=== PATIENT | female | born 1930 | race Asian ===

== ENCOUNTER 2017-10-01 09:23 | Inpatient (IN) | payer OTHER ==
[2017-10-01] MEDS: SOD CHLORIDE 0.9% 1,000 ML IV ×3 (10:51→21:52)
[2017-10-01 10:58] LABS: HEMATOCRIT 36.9 % (37.0-47.0); HEMOGLOBIN 12.4 g/dl (12.0-16.0); MEAN CORPUSCULAR HEMOGLOBIN 32.6 pg (29.0-33.0); MEAN CORPUSCULAR HGB CONC 33.6 g/dl (32.0-37.0); MEAN CORPUSCULAR VOLUME 97.1 fl (82.0-101.0); MEAN PLATELET VOLUME 11.5 fl (7.4-10.4); PLATELET COUNT 145 10^3/UL (140-415); RED CELL DISTRIBUTION WIDTH 12.5 % (11.5-14.5)
[2017-10-01 11:12] LABS: ADD MAN DIFF? YES; POSITIVE DIFF @See below
[2017-10-01 11:19] LABS: BAND NEUTROPHILS #M 3.6 10^3/ul (0.0-0.6); BAND NEUTROPHILS % (M) 33 % (0-4); BASOPHIL #M 0.1 10^3/ul (0.0-0.0); BASOPHILS % (M) 1 % (0-2); BURR CELLS 1+ (0-0); LYMPHOCYTES #M 1.5 10^3/ul (0.8-2.9); LYMPHOCYTES % (M) 14 % (15-51); MONOCYTE #M 0.4 10^3/ul (0.3-0.9); MONOCYTES % (M) 4 % (0-11); PLATELET ESTIMATE DECREASED; POIKILOCYTOSIS 1+ (0-0); SEG NEUT #M 5.7 10^3/ul (1.7-7.5); SEGMENTED NEUTROPHILS (M) % 48 % (39-77)
[2017-10-01 12:23] LABS: ADD UMIC NO; UR ASCORBIC ACID NEGATIVE (NEGATIVE); UR BILIRUBIN (Dip) NEGATIVE (NEGATIVE); UR BLOOD (Dip) NEGATIVE (NEGATIVE); UR CLARITY CLEAR (CLEAR); UR COLOR YELLOW (YELLOW); UR GLUCOSE (Dip) 3+ mg/dL (NEGATIVE); UR KETONES (Dip) TRACE mg/dL (NEGATIVE); UR LEUKOCYTE ESTERASE (Dip) NEGATIVE Leu/ul (NEGATIVE); UR NITRITE (Dip) NEGATIVE (NEGATIVE); UR SPECIFIC GRAVITY (Dip) 1.018 (1.003-1.030); UR TOTAL PROTEIN (Dip) NEGATIVE (NEGATIVE); UR UROBILINOGEN (Dip) NEGATIVE (NEGATIVE)
[2017-10-01 13:56] LABS: ALANINE AMINOTRANSFERASE 33 IU/L (13-69); ALBUMIN 3.8 g/dl (3.3-4.9); ALBUMIN/GLOBULIN RATIO 1.08; ALKALINE PHOSPHATASE 63 IU/L (42-121); ANION GAP 19 (8-16); ASPARTATE AMINO TRANSFERASE 39 IU/L (15-46); BILIRUBIN,INDIRECT 0.4 mg/dl (0-1.1); BILIRUBIN,TOTAL 0.4 mg/dl (0.2-1.3); BLOOD UREA NITROGEN 17 mg/dl (7-20); CALCIUM 8.6 mg/dl (8.4-10.2); CARBON DIOXIDE 16 mmol/L (21-31); CHLORIDE 107 mmol/L (97-110); CREATININE 0.85 mg/dl (0.44-1.00); GLUCOSE 189 mg/dl (70-220); LIPASE 1054 U/L (23-300); SODIUM 138 mmol/L (135-144); TOTAL PROTEIN 7.3 g/dl (6.1-8.1)
[2017-10-01 14:19] LABS: TROPONIN-I < 0.012 ng/ml (0.00-0.12)
[2017-10-01] MEDS ORDERED: GLUCAGON 1 MG INJ IM (16:30)
[2017-10-01] MEDS ORDERED: HYDROCODONE/APAP (5/325) TAB PO (16:30)
[2017-10-01] MEDS ORDERED: DEXTROSE 50% 50 ML SYRINGE IV ×2 (16:30)
[2017-10-01] MEDS ORDERED: MAGNESIUM HYDROXIDE 30ML CUP PO (16:30)
[2017-10-01] MEDS ORDERED: ACETAMINOPHEN 325 MG TAB PO (16:30)
[2017-10-01] MEDS ORDERED: DOCUSATE SODIUM 100 MG CAP PO (16:30)
[2017-10-01] MEDS ORDERED: NACL 0.9% 3 ML SYG IV (16:30)
[2017-10-01] MEDS ORDERED: BISACODYL 10 MG SUPP PR (16:30)
[2017-10-01] MEDS ORDERED: GLUCOSE GEL 15 GRAM TUBE BUCCAL (16:30)
[2017-10-01] MEDS ORDERED: ONDANSETRON 4 MG INJ IV (16:30)
[2017-10-01] MEDS ORDERED: morphine 2 MG INJ IV (16:30)
[2017-10-01] MEDS ORDERED: GLUCOSE GEL 15 GRAM TUBE PO ×2 (16:30)
[2017-10-01 18:37] LABS: LACTIC ACID 3.2 mmol/L (0.5-2.0)
[2017-10-01] MEDS: LEVOFLOXACIN 750MG/D5W (PMX) 150 ML IVPB (19:52)
[2017-10-01] MEDS: LACTOBACILLUS RHAMNOSUS CAP PO ×2 (20:00→22:33)
[2017-10-01] MEDS: ATORVASTATIN 20 MG TAB PO ×2 (21:00→22:33)
[2017-10-01] MEDS: DOCUSATE SODIUM 250 MG CAP PO ×2 (21:00→22:33)
[2017-10-01] MEDS: DONEPEZIL 10 MG TAB PO ×2 (21:00→22:33)
[2017-10-01] MEDS: INSULIN ASPART [NOVOLOG] 3 ML PEN SC (21:00)
[2017-10-01] MEDS: FAMOTIDINE 20 MG INJ IV (22:33)
[2017-10-02] MEDS: SOD CHLORIDE 0.9% 1,000 ML IV ×2 (05:31→08:16)
[2017-10-02 05:59] LABS: ADD MAN DIFF? NO
[2017-10-02 06:10] LABS: BASOPHILS % 0.1 % (0.0-2.0); EOSINOPHILS % 0.1 % (0.0-7.0); HEMATOCRIT 26.9 % (37.0-47.0); HEMOGLOBIN 9.4 g/dl (12.0-16.0); LYMPHOCYTES # 1.2 10^3/ul (0.8-2.9); LYMPHOCYTES % 15.6 % (15.0-51.0); MEAN CORPUSCULAR HEMOGLOBIN 33.3 pg (29.0-33.0); MEAN CORPUSCULAR HGB CONC 34.9 g/dl (32.0-37.0); MEAN CORPUSCULAR VOLUME 95.4 fl (82.0-101.0); MEAN PLATELET VOLUME 10.5 fl (7.4-10.4); MONOCYTE # 0.7 10^3/ul (0.3-0.9); MONOCYTES % 8.9 % (0.0-11.0); NEUTROPHIL # 5.7 10^3/ul (1.6-7.5); PLATELET COUNT 111 10^3/UL (140-415); RED BLOOD COUNT 2.82 10^6/ul (4.20-5.40); RED CELL DISTRIBUTION WIDTH 12.2 % (11.5-14.5)
[2017-10-02 06:10] LABS: WHITE BLOOD COUNT 7.6 10^3/ul (4.8-10.8)
[2017-10-02 06:49] LABS: AMYLASE 100 U/L (11-123)
[2017-10-02 06:49] LABS: LIPASE 119 U/L (23-300)
[2017-10-02 06:58] LABS: ALANINE AMINOTRANSFERASE 36 IU/L (13-69); ALBUMIN 2.7 g/dl (3.3-4.9); ALBUMIN/GLOBULIN RATIO 0.96; ALKALINE PHOSPHATASE 44 IU/L (42-121); ANION GAP 13 (8-16); ASPARTATE AMINO TRANSFERASE 29 IU/L (15-46); BILIRUBIN,INDIRECT 0.4 mg/dl (0-1.1); BILIRUBIN,TOTAL 0.4 mg/dl (0.2-1.3); BLOOD UREA NITROGEN 13 mg/dl (7-20); CALCIUM 7.4 mg/dl (8.4-10.2); CARBON DIOXIDE 17 mmol/L (21-31); CHLORIDE 109 mmol/L (97-110); CHOL/HDL RATIO 2.5 RATIO; CHOLESTEROL 86 mg/dl (100-200); CREATININE 0.77 mg/dl (0.44-1.00); GLUCOSE 116 mg/dl (70-220); HDL CHOLESTEROL 34 mg/dl (33-92); LDL CHOLESTEROL,CALCULATED 45 mg/dl; MAGNESIUM 1.1 mg/dl (1.7-2.5); PHOSPHORUS 2.3 mg/dl (2.5-4.9); POTASSIUM 3.3 mmol/L (3.5-5.1); SODIUM 136 mmol/L (135-144); TOTAL PROTEIN 5.5 g/dl (6.1-8.1); TRIGLYCERIDES 34 mg/dl (0-149)
[2017-10-02 07:54] LABS: HEMOGLOBIN A1C 6.8 % (0-5.9)
[2017-10-02] MEDS: INSULIN ASPART [NOVOLOG] 3 ML PEN SC ×3 (08:12→17:37)
[2017-10-02] MEDS: CHOLECALCIFEROL 1,000 UNIT TAB PO (09:34)
[2017-10-02] MEDS: CLOPIDOGREL 75 MG TAB PO (09:35)
[2017-10-02] MEDS: ASPIRIN (EC) 81 MG TAB PO (09:35)
[2017-10-02] MEDS: AMLODIPINE 2.5 MG TAB PO (09:35)
[2017-10-02] MEDS: DOCUSATE SODIUM 250 MG CAP PO (09:35)
[2017-10-02] MEDS: LOSARTAN 50 MG TAB PO (09:37)
[2017-10-02] MEDS: MEGESTROL (40 MG/ML) 10ML CUP PO (09:37)
[2017-10-02] MEDS: LACTULOSE 30ML CUP PO (09:37)
[2017-10-02] MEDS: ENOXAPARIN 30 MG/0.3 ML SYG SC (09:42)
[2017-10-02] MEDS: POTASSIUM CHLORIDE (SR) 20 MEQ TAB PO (10:30)
[2017-10-02] MEDS: MAGNESIUM SULFATE 4 GM/100 ML 100 ML IVPB (11:35)
[2017-10-02] MEDS ORDERED: POTASSIUM PHOSPHATE 15 MM in SOD CHLORIDE 0.9% 250 ML IVPB (12:00)
[2017-10-02] MEDS: LACTOBACILLUS RHAMNOSUS CAP PO (15:54)
[2017-10-02] MEDS: POTASSIUM CHLORIDE (SR) 10 MEQ TAB PO (15:55)
[2017-10-02] MEDS: NEUTRA-PHOS 250 MG PACKET PO (15:56)
[2017-10-04] MEDS ORDERED: INFLUENZA VIRUS VACCINE 0.5 ML (DISPENSING) IM* (09:00)
== END 2017-10-02 19:30 | disposition home health service (06) | DRG 203 ==
LOC: E/R 09:23 → MS2 14:46
PROVIDERS: Internal Medicine
DX: J20.9 Acute bronchitis, unspecified (principal); E86.0 Dehydration; F03.90 Unspecified dementia, unspecified severity, without behavioral disturbance, psychotic disturbance, mood disturbance, and anxiety; E11.9 Type 2 diabetes mellitus without complications; Z86.73 Personal history of transient ischemic attack (TIA), and cerebral infarction without residual deficits; I10 Essential (primary) hypertension; E78.5 Hyperlipidemia, unspecified; R74.8 Abnormal levels of other serum enzymes
CPT/HCPCS: 36415; 70450; 71045; 74176; 80053; 80061; 81003; 82150; 82962; 83036; 83605; 83690; 83735; 84100; 84484; 85025; 87040; 87086; 87400; 93005; 96365; 96366; 99285-25